=== PATIENT | female | born 1995 | race Caucasian/White ===

== ENCOUNTER 2016-10-01 14:09 | Observation (INO) | payer SELFPAY ==
[~2016-10-01] VITALS: Ht 162.6 cm; Wt 99.2 kg
[~2016-10-01 14:09] MED LIST: MACR100C PO
[2016-10-01 14:19] VITALS: BP 139/93; PULSE 110; RESP 18; TEMP 99.8; O2SAT 97
[2016-10-01] MEDS ORDERED: ACETAMINOPHEN 650 MG/20.3 ML UDC PO ONE (16:00)
[2016-10-01] MEDS ORDERED: methylPREDNISolone SOD SUCC 125 MG/2 ML VIAL IM ONE (16:00)
--- NOTE | 2016-10-01 16:10 | PD ---
HPI Chief Complaint: ENT Complaint Time Seen by Provider: 13:35 Travel History International Travel<30 days: No Contact w/Intl Traveler<30days: No Traveled to known affect area: No History of Present Illness HPI Patient is a 20-year-old female who presents emergency for evaluation of a sore throat. Patient states it started yesterday she's been taking ibuprofen around- the-clock. Patient states it's hard to swallow and talk, she denies any drooling. She denies any nausea, vomiting, chest pain, shortness of breath, abdominal pain. She does report a dull headache due to the pain in her throat. 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) Cardiovascular Problems: Yes (see HPI) Chemotherapy: Yes (IN PAST) Developmental Delay: No Diminished Hearing: No Genitourinary: No Musculoskeletal: No Neurologic: No Respiratory: No Immunizations Current: Yes Radiation Therapy: No Sickle Cell Disease: No Tetanus Vaccination: < 5 Years Influenza Vaccination: No ?: Not LMP: 09/09/16 : 0 Social History Alcohol Use: No Tobacco Use: No Substance Use: No Allergies-Medications (Allergen,Severity, Reaction): Coded Allergies: No Known Allergies (Verified , 10/01/16) Reported Meds & Prescriptions Reported Meds & Active Scripts Active No Active Prescriptions or Reported Medications Review of Systems Except as stated in HPI: all other systems reviewed are Neg General / Constitutional: Positive: Fever, Chills HENT: Positive: Sore Throat, Neck Pain Physical Exam Narrative GENERAL: Well-nourished, well-developed patient. SKIN: Warm and dry. HEAD: Normocephalic. EYES: No scleral icterus. No injection or drainage. ENT: Mucosa pink and moist. 2+ bilateral tonsillar hypertrophy, significant exudates noted on tonsils. No uvular edema. No uvular, palatal, or tonsillar deviation. No stridor noted. Airway patent. Nasal turbinates appear normal without nasal blood, purulent drainage or septal hematoma. NECK: Supple, trachea midline. No JVD or lymphadenopathy. CARDIOVASCULAR: Regular rate and rhythm without murmurs, gallops, or rubs. RESPIRATORY: Breath sounds equal bilaterally. No accessory muscle use. GASTROINTESTINAL: Abdomen soft, non-tender, nondistended. MUSCULOSKELETAL: No cyanosis, or edema. BACK: Nontender without obvious deformity. No CVA tenderness. Data Data Last Documented VS Vital Signs Date Time Temp Pulse Resp B/P Pulse Ox O2 Delivery O2 Flow Rate FiO2 10/01/16 18:51 98.6 86 18 140/77 98 Room Air Orders Methylprednisolone So Succ Inj (Solumedr (10/01/16 16:00) Group A Rapid Strep Screen (10/01/16 15:53) Acetaminophen 650 Mg/20 Ml Liq (Tylenol (10/01/16 16:00) Strep Culture (Group A) (10/01/16 16:10) Sodium Chlor 0.9% 1000 Ml Inj (Ns 1000 M (10/01/16 17:15) Ceftriaxone Inj (Rocephin Inj) (10/01/16 17:15) Complete Blood Count With Diff (10/01/16 17:03) Basic Metabolic Panel (Bmp) (10/01/16 17:03) Monoscreen (10/01/16 17:03) Iv Access Insert/Monitor (10/01/16 17:03) Influenzae A/B Antigen (10/01/16 17:05) Place In Observation (10/01/16 ) Vital Signs (Adult) Q4H (10/01/16 19:49) Activity Oob Ad Jessie (10/01/16 19:49) Accounts Payable Professional / Telemetry .CONTINUOUS (10/01/16 19:49) Diet Clear Liquid (10/02/16 Breakfast) Sodium Chlor 0.9% 1000 Ml Inj (Ns 1000 M (10/01/16 19:49) Sodium Chloride 0.9% Flush (Ns Flush) (10/01/16 20:00) Sodium Chloride 0.9% Flush (Ns Flush) (10/01/16 21:00) Basic Metabolic Panel (Bmp) (10/02/16 06:00) Complete Blood Count With Diff (10/02/16 06:00) Scd Bilateral/Knee High DEBBI.BID (10/01/16 19:49) Naloxone Inj (Narcan Inj) (10/01/16 20:00) Dexamethasone Inj (Decadron Inj) (10/02/16 00:00) Pantoprazole Inj (Protonix Inj) (10/01/16 20:00) Clindamycin Inj (Cleocin Inj) (10/01/16 20:00) Admit Order (Ed Use Only) (10/01/16 19:50) Labs Laboratory Tests Test 10/01/16 17:20 White Blood Count 18.0 TH/MM3 Red Blood Count 4.73 MIL/MM3 Hemoglobin 12.8 GM/DL Hematocrit 37.6 % Mean Corpuscular Volume 79.4 FL Mean Corpuscular Hemoglobin 27.1 PG Mean Corpuscular Hemoglobin 34.1 % Concent Red Cell Distribution Width 13.6 % Platelet Count 272 TH/MM3 Mean Platelet Volume 9.1 FL Neutrophils (%) (Auto) 85.3 % Lymphocytes (%) (Auto) 6.1 % Monocytes (%) (Auto) 7.6 % Eosinophils (%) (Auto) 0.3 % Basophils (%) (Auto) 0.7 % Neutrophils # (Auto) 15.3 TH/MM3 Lymphocytes # (Auto) 1.1 TH/MM3 Monocytes # (Auto) 1.4 TH/MM3 Eosinophils # (Auto) 0.1 TH/MM3 Basophils # (Auto) 0.1 TH/MM3 CBC Comment DIFF FINAL Differential Comment Sodium Level 141 MEQ/L Potassium Level 3.6 MEQ/L Chloride Level 107 MEQ/L Carbon Dioxide Level 22.9 MEQ/L Anion Gap 11 MEQ/L Blood Urea Nitrogen 7 MG/DL Creatinine 0.56 MG/DL Estimat Glomerular Filtration 138 ML/MIN Rate Random Glucose 106 MG/DL Calcium Level 8.7 MG/DL Monoscreen NEG MDM Medical Decision Making Medical Screen Exam Complete: Yes Emergency Medical Condition: Yes Interpretation(s) Vital Signs Date Time Temp Pulse Resp B/P Pulse Ox O2 Delivery O2 Flow Rate FiO2 10/01/16 14:19 99.8 110 18 139/93 97 Differential Diagnosis Strep pharyngitis versus epiglottitis versus viral URI versus influenza versus other Narrative Course Patient is a 20-year-old female presenting to emergency for evaluation of a sore throat and fevers that started yesterday. Physical examination revealed significantly enlarged tonsils with exudates. Patient is mildly febrile, took ibuprofen at home 4 hours ago. IM Solu-Medrol, acetaminophen now. Strep screen is pending. Patient is negative for group A strep. Patient is unable to adequately drink fluids due to tonsillar enlargement. Patient was seen and evaluated by my attending physician. She was given IV Rocephin. At this time it would be prudent to keep patient under observation to assess airway patency. Patient is agreeable. Discussed with Dr. Pedroza who accepted admission. Diagnosis Primary Impression: Tonsillitis with exudate Additional Impression: Airway compromise Admitting Information Admitting Physician Requests: Observation Scripts No Active Prescriptions or Reported Meds Condition: Stable Juhi Stark Oct 01, 2016 16:10
[2016-10-01] MEDS ORDERED: SODIUM CHLOR 0.9% 1000 ML INJ 1,000 ML IV ONE (17:15)
[2016-10-01] MEDS ORDERED: cefTRIAXone INJ 2,000 MG in SODIUM CHLORIDE 0.9% INJ 100 ML IV ONE (17:15)
[2016-10-01 17:26] LABS: AUTOMATED NEUTROPHIL # 15.3 TH/MM3 (1.8-7.7); BASOPHIL # 0.1 TH/MM3 (0-0.2); BASOPHIL % 0.7 % (0.0-2.0); EOSINOPHIL # 0.1 TH/MM3 (0-0.4); EOSINOPHIL % 0.3 % (0.0-4.0); HEMATOCRIT 37.6 % (35.0-46.0); HEMO FLAGS DIFF FINAL; LYMPH % 6.1 % (9.0-44.0); LYMPHOCYTE # 1.1 TH/MM3 (1.0-4.8); MEAN CELL VOLUME 79.4 FL (80.0-100.0); MEAN CORPUSCULAR HEMOGLOBIN 27.1 PG (27.0-34.0); MEAN CORPUSCULAR HGB CONC 34.1 % (32.0-36.0); MONO % 7.6 % (0.0-8.0); NEUT % 85.3 % (16.0-70.0); PLATELET COUNT 272 TH/MM3 (150-450); RED BLOOD COUNT 4.73 MIL/MM3 (4.00-5.30); RED CELL DISTRIBUTION WIDTH 13.6 % (11.6-17.2)
[2016-10-01 17:40] LABS: POTASSIUM 3.6 MEQ/L (3.5-5.1)
[2016-10-01 17:43] LABS: BICARBONATE 22.9 MEQ/L (21.0-32.0)
[2016-10-01 18:51] VITALS: BP 140/77; PULSE 86; RESP 18; TEMP 98.6; O2SAT 98
[2016-10-01] MEDS ORDERED: NALOXONE HCL 0.4 MG/ML AMP IV PRN (20:00)
[2016-10-01] MEDS ORDERED: PANTOPRAZOLE SODIUM 40 MG VIAL IV PUSH SCH (20:00)
[2016-10-01] MEDS ORDERED: SODIUM CHLORIDE 0.9% FLUSH 5 ML FLUSH FLUSH PRN (20:00)
[2016-10-01] MEDS: SODIUM CHLORIDE 0.9% FLUSH 5 ML FLUSH FLUSH SCH (20:15)
[2016-10-01] MEDS ORDERED: MORPHINE SULFATE 4 MG/ML INJ IV PUSH PRN (20:15)
[2016-10-01] MEDS: SODIUM CHLOR 0.9% 1000 ML INJ 1,000 ML IV SCH (20:15)
[2016-10-01] MEDS: CLINDAMYCIN INJ 900 MG in SODIUM CHLORIDE 0.9% INJ 100 ML IV SCH (21:04)
[2016-10-01 23:01] VITALS: PULSE 81
[2016-10-02] VITALS: BP 133/80; PULSE 90; RESP 16; TEMP 96.2; O2SAT 99
[2016-10-02] MEDS: DEXAMETHASONE SOD PHOS 4 MG/ML VIAL IV PUSH SCH ×3 (00:01→13:18)
[2016-10-02] MEDS: CLINDAMYCIN INJ 900 MG in SODIUM CHLORIDE 0.9% INJ 100 ML IV SCH ×3 (01:16→14:28)
[2016-10-02 04:00] VITALS: BP 128/76; PULSE 85; RESP 16; TEMP 97; O2SAT 99
[2016-10-02] MEDS: SODIUM CHLOR 0.9% 1000 ML INJ 1,000 ML IV SCH (06:18)
[2016-10-02 06:43] LABS: AUTOMATED NEUTROPHIL # 9.7 TH/MM3 (1.8-7.7); BASOPHIL % 0.1 % (0.0-2.0); HEMATOCRIT 35.9 % (35.0-46.0); HEMO FLAGS DIFF FINAL; LYMPH % 7.1 % (9.0-44.0); LYMPHOCYTE # 0.7 TH/MM3 (1.0-4.8); MEAN CELL VOLUME 80.2 FL (80.0-100.0); MEAN CORPUSCULAR HEMOGLOBIN 27.5 PG (27.0-34.0); MEAN CORPUSCULAR HGB CONC 34.3 % (32.0-36.0); MONO % 1.4 % (0.0-8.0); NEUT % 91.4 % (16.0-70.0); PLATELET COUNT 261 TH/MM3 (150-450); RED BLOOD COUNT 4.48 MIL/MM3 (4.00-5.30); RED CELL DISTRIBUTION WIDTH 13.6 % (11.6-17.2); WHITE BLOOD COUNT 10.5 TH/MM3 (4.0-11.0)
[2016-10-02 07:12] LABS: POTASSIUM 3.7 MEQ/L (3.5-5.1)
[2016-10-02 07:17] LABS: BICARBONATE 24.8 MEQ/L (21.0-32.0)
[2016-10-02 08:00] VITALS: BP 120/78; PULSE 83; RESP 16; TEMP 98; O2SAT 99
[2016-10-02] MEDS: SODIUM CHLORIDE 0.9% FLUSH 5 ML FLUSH FLUSH SCH (09:00)
[2016-10-02] MEDS ORDERED: NYSTAT/DIPHENHY/LIDO MOUTHWASH (Adult) 120ML SWISH-SWAL SCH (11:00)
[2016-10-02 12:00] VITALS: BP 118/77; PULSE 80; RESP 16; TEMP 98; O2SAT 99
[2016-10-02] MEDS ORDERED: MAGICADU2 SWISH-SWAL (13:44)
[2016-10-02] MEDS ORDERED: AMOX250C CHEW (13:44)
--- NOTE | 2016-10-02 13:50 | HHI.HP ---
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 She had been taking ibuprofen without relief. She denied fevers, chills, drooling, vomiting, or shortness of breath. She was found to have tonsillitis emergency department. A rapid strep screen was negative. The emergency department nurse practitioner requested observation overnight. Today the patient is tolerating clear liquids. She received clindamycin and Decadron IV overnight and feels much better. She is swallowing well. Review of Systems Constitutional: DENIES: Fever, Chills Ears, nose, mouth, throat: COMPLAINS OF: Throat pain, Odynophagia Respiratory: DENIES: Cough, Shortness of breath Cardiovascular: DENIES: Chest pain, Palpitations Gastrointestinal: DENIES: Nausea, Vomiting Genitourinary: DENIES: Urinary frequency, Urgency Musculoskeletal: DENIES: Back pain, Neck pain Hematologic/lymphatic: DENIES: Lymphadenopathy Immunologic/allergic: DENIES: Eczema, Urticaria Neurologic: COMPLAINS OF: Headache, DENIES: Abnormal gait Psychiatric: DENIES: Anxiety, Confusion Past Family Social History Past Medical History As per history of present illness Past Surgical History Surgery for broken arm as a child. Allergies: Coded Allergies: No Known Allergies (Verified , 10/01/16) Family History Reviewed and noncontributory Social History No alcohol tobacco or drug use Physical Exam Vital Signs Vital Signs Date Time Temp Pulse Resp B/P Pulse Ox O2 Delivery O2 Flow Rate FiO2 10/02/16 12:00 98.0 80 16 118/77 99 10/02/16 08:00 98.0 83 16 120/78 99 10/02/16 04:00 97.0 85 16 128/76 99 10/02/16 00:00 96.2 90 16 133/80 99 10/01/16 23:01 81 10/01/16 18:51 98.6 86 18 140/77 98 Room Air 10/01/16 14:19 99.8 110 18 139/93 97 Physical Exam GENERAL: Well-nourished, well-developed patient. SKIN: Warm and dry. HEAD: Normocephalic. Oropharynx: Moist. She has kissing 3+ tonsils which are erythematous with scant white exudate however airways pain. No stridor. No drooling. EYES: No scleral icterus. No injection or drainage. NECK: Supple, trachea midline. No JVD or lymphadenopathy. CARDIOVASCULAR: Regular rate and rhythm without murmurs, gallops, or rubs. RESPIRATORY: Breath sounds equal bilaterally. No accessory muscle use. GASTROINTESTINAL: Abdomen soft, non-tender, nondistended. EXTREMITIES: No cyanosis, or edema. NEUROLOGICAL: Awake, alert, and oriented x 3. Non-focal. Laboratory Laboratory Tests Test 10/01/16 10/02/16 17:20 06:00 White Blood Count 18.0 10.5 Red Blood Count 4.73 4.48 Hemoglobin 12.8 12.3 Hematocrit 37.6 35.9 Mean Corpuscular Volume 79.4 80.2 Mean Corpuscular Hemoglobin 27.1 27.5 Mean Corpuscular Hemoglobin 34.1 34.3 Concent Red Cell Distribution Width 13.6 13.6 Platelet Count 272 261 Mean Platelet Volume 9.1 9.1 Neutrophils (%) (Auto) 85.3 91.4 Lymphocytes (%) (Auto) 6.1 7.1 Monocytes (%) (Auto) 7.6 1.4 Eosinophils (%) (Auto) 0.3 0.0 Basophils (%) (Auto) 0.7 0.1 Neutrophils # (Auto) 15.3 9.7 Lymphocytes # (Auto) 1.1 0.7 Monocytes # (Auto) 1.4 0.1 Eosinophils # (Auto) 0.1 0.0 Basophils # (Auto) 0.1 0.0 CBC Comment DIFF FINAL DIFF FINAL Differential Comment Sodium Level 141 142 Potassium Level 3.6 3.7 Chloride Level 107 108 Carbon Dioxide Level 22.9 24.8 Anion Gap 11 9 Blood Urea Nitrogen 7 6 Creatinine 0.56 0.40 Estimat Glomerular Filtration 138 203 Rate Random Glucose 106 114 Calcium Level 8.7 8.6 Monoscreen NEG Date/Time Procedure Status Source Growth 10/01/16 17:20 Influenza Types A,B Antigen (POONAM) - Final Complete Nasal Washing NEGATIVE FOR FLU A AND B ANTIGEN.... 10/01/16 16:10 Group A Streptococcus Screen (POONAM) - Final Complete Throat 10/01/16 16:10 Group A Streptococcus Screen Received Throat Pending Result Diagram: 10/02/16 0600 10/02/16 0600 Assessment and Plan Problem List: (1) Tonsillitis with exudate ICD Code: J03.90 Status: Acute Assessment and Plan -Acute tonsillitis. Likely bilateral. [place] screen and strep were negative. She has kissing tonsils with mild accident but is tolerating clear liquid diet and would like to eat regular food. We'll advance her diet. She can be discharged home. I will prescribe her Magic mouthwash and amoxicillin. She is advised to return the emergency department for inability to swallow, worsening symptoms were nausea and vomiting. Danita Ramirez MD Oct 02, 2016 13:50
== END 2016-10-02 16:04 | disposition home or self-care (01) ==
LOC: PHEFT 14:09 → PHEDA 19:53 → PH3B 22:48
PROVIDERS: ADMIT Family Medicine; ATTEND Family Medicine
DX: J35.1 Hypertrophy of tonsils (principal); R13.10 Dysphagia, unspecified; R51 Headache; Z85.72 Personal history of non-Hodgkin lymphomas
CPT/HCPCS: 80048; 85025; 86308; 87081; 87804; 87880; 96365; 96372; 99285; C9113; G0378; J0696; J1100; J2930; J7030

== ENCOUNTER 2016-12-10 04:59 | Emergency (ER) | payer SELFPAY ==
[~2016-12-10] VITALS: Ht 160 cm; Wt 98.3 kg
[~2016-12-10 04:59] MED LIST changes: +AMOX250C CHEW; -MACR100C PO; +MAGICADU2 SWISH-SWAL
[2016-12-10 05:04] VITALS: BP 115/71; PULSE 63; RESP 18; TEMP 97.7; O2SAT 98
[2016-12-10 05:29] VITALS: BP 115/71; PULSE 63; RESP 18; TEMP 97.7; O2SAT 98
[2016-12-10 05:41] VITALS: BP 129/84; PULSE 66; RESP 18; O2SAT 99
[2016-12-10] MEDS ORDERED: SODIUM CHLOR 0.9% 1000 ML INJ 1,000 ML IV SCH (06:14)
--- NOTE | 2016-12-10 06:14 | PD ---
HPI Chief Complaint: Abdominal Pain Time Seen by Provider: 06:10 Travel History International Travel<30 days: No Contact w/Intl Traveler<30days: No Traveled to known affect area: No History of Present Illness HPI 21-year-old female presents to the emergency department by private transportation for complaint of epigastric and periumbilical pain that awakened her from sleep at 3 AM. Patient rates her pain 7/10 in intensity. Patient's had nausea without vomiting. Patient states pain radiates into her back. No prior history of peptic ulcer disease gastritis pancreatitis or gallbladder disease. Patient has taken no medications prior to arrival to the emergency department. Patient admits to drinking alcohol over the weekend. Patient denies tobacco use or substance use. No chest pain or shortness of breath. No fever or chills. No recent respiratory illness. No dysuria frequency urgency flank pain hematuria vaginal discharge or vaginal bleeding. Last menses was 06/11 and normal for her. Patient is sent reactive with condom use. Patient reports walking around seems to alleviate the pain and lying down seems to worsen her symptoms. No personal or family history of inflammatory bowel disease. PFSH Past Medical History Narrative Medical B cell lymphoma with chemotherapy age 13; immunizations current; no tobacco use ; nursing notes reviewed Cancer: Yes (HX LARGE B CELL LYMPHOMA AT AGE 13.) Chemotherapy: Yes (2010 large diffuse B-cell Lymphoma) Developmental Delay: No Diminished Hearing: No Endocrine: No Genitourinary: No Immune Disorder: No Implanted Vascular Access Dvce: Yes Musculoskeletal: No Neurologic: No Psychiatric: No Reproductive: No Respiratory: Yes Immunizations Current: Yes Radiation Therapy: No Sickle Cell Disease: No Tetanus Vaccination: < 5 Years Influenza Vaccination: No ?: Not LMP: 12/03/2016 : 0 Social History Alcohol Use: No Tobacco Use: No Substance Use: No Allergies-Medications (Allergen,Severity, Reaction): Coded Allergies: No Known Allergies (Verified , 12/10/16) Reported Meds & Prescriptions Reported Meds & Active Scripts Active Review of Systems Except as stated in HPI: all other systems reviewed are Neg General / Constitutional: No: Fever, Chills HENT: No: Congestion Cardiovascular: No: Chest Pain or Discomfort Gastrointestinal: Positive: Nausea, Abdominal Pain, No: Vomiting, Diarrhea, Loss of Appetite Genitourinary: No: Urgency, Frequency, Dysuria, Hematuria, Pelvic Pain, Flank Pain, Discharge, Vaginal Bleeding Musculoskeletal: No: Myalgias, Arthralgias Skin: No Rash Neurologic: No: Weakness Psychiatric: No: Anxiety Endocrine: No: Heat Intolerance, Cold Intolerance Hematologic/Lymphatic: No: Easy Bruising Physical Exam Narrative GENERAL: Well-developed well-nourished female in no acute distress no respiratory distress SKIN: Warm and dry. HEAD: Normocephalic. EYES: No scleral icterus. No injection or drainage. NECK: Supple, trachea midline. No JVD or lymphadenopathy. CARDIOVASCULAR: Regular rate and rhythm without murmurs, gallops, or rubs. RESPIRATORY: Breath sounds equal bilaterally. No accessory muscle use. GASTROINTESTINAL: Abdomen soft, epigastric and periumbilical tenderness to palpation without guarding or rebound, no clinical Rod sign and no tenderness at McBurney's point, nondistended. MUSCULOSKELETAL: No cyanosis, or edema. BACK: Nontender without obvious deformity. No CVA tenderness. Data Data Last Documented VS Vital Signs Date Time Temp Pulse Resp B/P Pulse Ox O2 Delivery O2 Flow Rate FiO2 12/10/16 07:05 60 18 121/74 98 Room Air 12/10/16 05:29 97.7 Orders Complete Blood Count With Diff (12/10/16 06:14) Comprehensive Metabolic Panel (12/10/16 06:14) Lipase (12/10/16 06:14) Urinalysis - C+S If Indicated (12/10/16 06:14) Iv Access Insert/Monitor (12/10/16 06:14) Ecg Monitoring (12/10/16 06:14) Oximetry (12/10/16 06:14) Ondansetron Inj (Zofran Inj) (12/10/16 06:15) Pantoprazole Inj (Protonix Inj) (12/10/16 06:15) Sodium Chlor 0.9% 1000 Ml Inj (Ns 1000 M (12/10/16 06:14) Sodium Chloride 0.9% Flush (Ns Flush) (12/10/16 06:15) Ed Urine Pregnancytest Poc (12/10/16 06:14) Morphine Inj (Morphine Inj) (12/10/16 06:15) Labs Laboratory Tests Test 12/10/16 06:25 White Blood Count 8.4 TH/MM3 Red Blood Count 5.10 MIL/MM3 Hemoglobin 13.7 GM/DL Hematocrit 41.3 % Mean Corpuscular Volume 80.8 FL Mean Corpuscular Hemoglobin 26.9 PG Mean Corpuscular Hemoglobin 33.3 % Concent Red Cell Distribution Width 13.8 % Platelet Count 299 TH/MM3 Mean Platelet Volume 9.4 FL Neutrophils (%) (Auto) 62.8 % Lymphocytes (%) (Auto) 21.4 % Monocytes (%) (Auto) 10.4 % Eosinophils (%) (Auto) 4.8 % Basophils (%) (Auto) 0.6 % Neutrophils # (Auto) 5.2 TH/MM3 Lymphocytes # (Auto) 1.8 TH/MM3 Monocytes # (Auto) 0.9 TH/MM3 Eosinophils # (Auto) 0.4 TH/MM3 Basophils # (Auto) 0.1 TH/MM3 CBC Comment DIFF FINAL Differential Comment Urine Color YELLOW Urine Turbidity CLEAR Urine pH 6.5 Urine Specific [place] 1.013 Urine Protein NEG mg/dL Urine Glucose (UA) NEG mg/dL Urine Ketones NEG mg/dL Urine Occult Blood NEG Urine Nitrite NEG Urine Bilirubin NEG Urine Leukocyte Esterase SMALL Urine WBC 0-2 /hpf Urine Squamous Epithelial 0-5 /hpf Cells Microscopic Urinalysis Comment CULT NOT INDICATED Sodium Level 143 MEQ/L Potassium Level 3.6 MEQ/L Chloride Level 105 MEQ/L Carbon Dioxide Level 28.4 MEQ/L Anion Gap 10 MEQ/L Blood Urea Nitrogen 7 MG/DL Creatinine 0.59 MG/DL Estimat Glomerular Filtration 129 ML/MIN Rate Random Glucose 92 MG/DL Calcium Level 8.7 MG/DL Total Bilirubin 0.5 MG/DL Aspartate Amino Transf 10 U/L (AST/SGOT) Alanine Aminotransferase 16 U/L (ALT/SGPT) Alkaline Phosphatase 82 U/L Total Protein 7.3 GM/DL Albumin 3.8 GM/DL Lipase 106 U/L MDM Medical Decision Making Medical Screen Exam Complete: Yes Emergency Medical Condition: Yes Medical Record Reviewed: Yes Interpretation(s) [id number] hCG: Negative CBC & BMP Diagram 12/10/16 06:25 Vital Signs Date Time Temp Pulse Resp B/P Pulse Ox O2 Delivery O2 Flow Rate FiO2 12/10/16 07:05 60 18 121/74 98 Room Air 12/10/16 07:04 18 12/10/16 06:45 70 18 120/80 99 Room Air 12/10/16 06:44 18 99 Room Air 12/10/16 05:41 66 18 129/84 99 Room Air 12/10/16 05:36 18 12/10/16 05:29 97.7 63 18 115/71 98 12/10/16 05:04 97.7 63 18 115/71 98 Differential Diagnosis Abdominal pain, gastritis, peptic ulcer disease, pancreatitis, biliary colic, cholecystitis, viral syndrome, gastroenteritis Narrative Course IV access obtained specimens collected and sent for resulting [id number] test performed IV fluids administered along with Zofran 4 mg IV and morphine 2 mg IV At 7:25 AM patient is clinically improved and stable for outpatient management; lab values resulted and found to be within normal range; pain is 0/10 in intensity; patient reexamined abdomen is soft nontender no guarding or rebound Diagnosis Primary Impression: Gastritis Referrals: Primary Care Physician call for appointment Patient Instructions: General Instructions Additional Instructions: Increase fluid hydration Follow clear liquid diet for next 12-24 hours advance as tolerated to bland/ Krystina diet then regular diet Take Zofran as prescribed as needed for nausea and/or vomiting Recommend Protonix daily for the next 7 days or [id number] Zantac 150 twice daily for 7 days Follow-up with primary care provider Avoid nonsteroidal anti-inflammatory medication use such as ibuprofen/Motrin/ Advil May use acetaminophen/Tylenol as needed for fever 100.4F or greater or for minor pain No work or school times one day Med/Other Pt SpecificInfo: Prescription(s) given Scripts Pantoprazole (Protonix)40 Mg Tab40 Mg PO DAILY #14 TAB Ref 0 Prov:Ligia Horn MD 12/10/16 Ondansetron Odt (Zofran Odt)4 Mg Tab4 Mg SL Q6HR PRN (Nausea/Vomiting) #12 TAB Ref 0 Prov:Ligia Horn MD 12/10/16 Disposition: 01 DISCHARGE HOME Condition: Stable Ligia Horn MD Dec 10, 2016 06:14
[2016-12-10] MEDS ORDERED: ONDANSETRON HCL 4 MG/2 ML VIAL IVP ONE (06:15)
[2016-12-10] MEDS ORDERED: MORPHINE SULFATE 4 MG/ML INJ IV PUSH ONE (06:15)
[2016-12-10] MEDS ORDERED: SODIUM CHLORIDE 0.9% FLUSH 10 ML FLUSH IV FLUSH PRN (06:15)
[2016-12-10] MEDS ORDERED: PANTOPRAZOLE SODIUM 40 MG VIAL IVP ONE (06:15)
[2016-12-10 06:44] VITALS: RESP 18; O2SAT 99
[2016-12-10 06:45] VITALS: BP 120/80; PULSE 70; RESP 18; O2SAT 99
[2016-12-10 06:53] LABS: AUTOMATED NEUTROPHIL # 5.2 TH/MM3 (1.8-7.7); BASOPHIL # 0.1 TH/MM3 (0-0.2); BASOPHIL % 0.6 % (0.0-2.0); EOSINOPHIL # 0.4 TH/MM3 (0-0.4); EOSINOPHIL % 4.8 % (0.0-4.0); HEMATOCRIT 41.3 % (35.0-46.0); HEMO FLAGS DIFF FINAL; LYMPH % 21.4 % (9.0-44.0); LYMPHOCYTE # 1.8 TH/MM3 (1.0-4.8); MEAN CELL VOLUME 80.8 FL (80.0-100.0); MEAN CORPUSCULAR HEMOGLOBIN 26.9 PG (27.0-34.0); MEAN CORPUSCULAR HGB CONC 33.3 % (32.0-36.0); MONO % 10.4 % (0.0-8.0); NEUT % 62.8 % (16.0-70.0); PLATELET COUNT 299 TH/MM3 (150-450); RED CELL DISTRIBUTION WIDTH 13.8 % (11.6-17.2); WHITE BLOOD COUNT 8.4 TH/MM3 (4.0-11.0)
[2016-12-10 07:00] LABS: BLOOD, URINE NEG (NEG); GLUCOSE,URINE NEG (NEG); KETONE, URINE NEG (NEG); NITRITE,URINE NEG (NEG); PH, URINE 6.5 (5.0-8.5)
[2016-12-10 07:03] LABS: CHLORIDE 105 MEQ/L (98-107); POTASSIUM 3.6 MEQ/L (3.5-5.1); SODIUM (NA) 143 MEQ/L (136-145)
[2016-12-10 07:05] VITALS: BP 121/74; PULSE 60; RESP 18; O2SAT 98
[2016-12-10 07:05] LABS: URINE COLOR YELLOW (YELLW/STRAW)
[2016-12-10 07:07] LABS: ANION GAP 10 MEQ/L (5-15); BICARBONATE 28.4 MEQ/L (21.0-32.0); BLOOD UREA NITROGEN 7 MG/DL (7-18)
[2016-12-10 07:09] LABS: ALT (GPT) 16 U/L (10-53)
[2016-12-10 07:10] LABS: AST (GOT) 10 U/L (15-37); GLOMERULAR FILTRATION RATE 129 ML/MIN (>89)
[2016-12-10 07:11] LABS: COMMENT (UR) CULT NOT INDICATED; CULTURE IF INDICATED CULT NOT INDICATED; SQUAMOUS EPITHELIAL CELL URINE 0-5 /hpf (0-5); TOTAL BILIRUBIN ADULT 0.5 MG/DL (0.2-1.0); WBC, URINE 0-2 /hpf (0-5)
[2016-12-10 07:12] LABS: ALKALINE PHOSPHATASE 82 U/L (45-117)
[2016-12-10] MEDS ORDERED: PROT40TA PO (07:27)
[2016-12-10] MEDS ORDERED: ZOFR4TAB3 SL (07:27)
== END 2016-12-10 07:38 | disposition home or self-care (01) ==
LOC: PHED 04:59
DX: K29.70 Gastritis, unspecified, without bleeding (principal); Z85.72 Personal history of non-Hodgkin lymphomas
CPT/HCPCS: 80053; 81001; 83690; 84703; 85025; 96361; 96374; 96375; 99284; C9113; J2270; J2405; J7030

== ENCOUNTER 2017-02-16 01:12 | Emergency (ER) | payer SELFPAY ==
[~2017-02-16] VITALS: Ht 160 cm; Wt 101.2 kg
[~2017-02-16 01:12] MED LIST changes: -AMOX250C CHEW; -MAGICADU2 SWISH-SWAL; +PROT40TA PO; +ZOFR4TAB3 SL
[2017-02-16 01:17] VITALS: BP 135/83; PULSE 71; RESP 16; TEMP 97.9; O2SAT 98
[2017-02-16] MEDS ORDERED: DOXY100C PO (02:29)
[2017-02-16] MEDS ORDERED: BACT800T5 PO (02:29)
--- NOTE | 2017-02-16 02:31 | PD ---
HPI Chief Complaint: Skin Problem Time Seen by Provider: 02:25 Travel History International Travel<30 days: No Contact w/Intl Traveler<30days: No Traveled to known affect area: No History of Present Illness HPI The patient is a 21-year-old female that complains of a painful lump for 2 days in her right axilla. She has had this problem before and went away. She does shave her arms. She does use antiperspirants. She states there is no possibility of , she takes control pills correctly. 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13.) Chemotherapy: Yes Developmental Delay: No Diminished Hearing: No Endocrine: No Genitourinary: No Immune Disorder: No Musculoskeletal: No Neurologic: No Psychiatric: No Reproductive: No Respiratory: Yes Immunizations Current: Yes Radiation Therapy: No Sickle Cell Disease: No ?: Unknown LMP: 02/04/17 : 0 Social History Alcohol Use: No Tobacco Use: No Substance Use: No Allergies-Medications (Allergen,Severity, Reaction): Coded Allergies: No Known Allergies (Verified , 02/16/17) Reported Meds & Prescriptions Reported Meds & Active Scripts Active No Active Prescriptions or Reported Medications Review of Systems Except as stated in HPI: all other systems reviewed are Neg Physical Exam Narrative GENERAL: Well-nourished, well-developed patient in minimal apparent distress with her right axillary pain. Her vital signs are normal. SKIN: Focused skin assessment warm/dry. There is an erythematous lesion approximately 1 cm x 3 mm on the right axilla. There are several smaller lesions. There is no fluctuance present. The axilla has been shaved. The larger lesion as well as several smaller lesions are consistent with hidradenitis suppurativa. HEAD: Normocephalic. EYES: No scleral icterus. No injection or drainage. NECK: Supple, trachea midline. No JVD or lymphadenopathy. CARDIOVASCULAR: Regular rate and rhythm without murmurs, gallops, or rubs. RESPIRATORY: Breath sounds equal bilaterally. No accessory muscle use. GASTROINTESTINAL: Abdomen soft, non-tender, nondistended. MUSCULOSKELETAL: No cyanosis, or edema. BACK: Nontender without obvious deformity. No CVA tenderness. Data Data Last Documented VS Vital Signs Date Time Temp Pulse Resp B/P Pulse Ox O2 Delivery O2 Flow Rate FiO2 02/16/17 01:38 20 02/16/17 01:17 97.9 71 135/83 98 MDM Medical Decision Making Medical Screen Exam Complete: Yes Emergency Medical Condition: Yes Medical Record Reviewed: Yes Differential Diagnosis Hidradenitis suppurativa, sebaceous cyst, ingrown hair, contact dermatitis Narrative Course The patient has hidradenitis suppurativa. She is given doxycycline and Septra DS and told to discontinue antiperspirants on that side. She should avoid intense heat and sweating and try to stay in air conditioning. She should follow-up with her primary care physician or a base manager. Diagnosis Primary Impression: Hidradenitis suppurativa of right axilla Additional Instructions: Discontinue the antiperspirants on the right side, striking try to stay in an environment's that do not cause intense sweating and take the antibiotics, they are both twice daily for 10 days. Follow-up with a base manager or your primary care physician. Med/Other Pt SpecificInfo: Prescription(s) given Scripts Doxycycline Hyclate 100 Mg [id number] Mg PO BID #20 CAP Ref 0 Prov:Jermain Weaver MD 02/16/17 Sulfamethoxazole-Trimethoprim (Bactrim DS)800-160 Mg Tab1 Tab PO BID #20 TAB Ref 0 Prov:Jermain Weaver MD 02/16/17 Disposition: 01 DISCHARGE HOME Condition: Stable Jermain Weaver MD Feb 16, 2017 02:30
[2017-02-16] MEDS ORDERED: DOXYCYCLINE HYCLATE 100 MG CAP PO ONE (02:45)
[2017-02-16] MEDS ORDERED: SULFAMETHOXAZOLE-TRIMETHOPRIM DS 800-160 MG TAB PO ONE (02:45)
[2017-02-16 02:48] VITALS: BP 128/76
== END 2017-02-16 02:51 | disposition home or self-care (01) ==
LOC: PHED 01:12
DX: L73.2 Hidradenitis suppurativa (principal)
CPT/HCPCS: 99284

== ENCOUNTER 2017-02-26 10:33 | Emergency (ER) | payer SELFPAY ==
[~2017-02-26] VITALS: Ht 160 cm; Wt 101.0 kg
[~2017-02-26 10:33] MED LIST changes: +BACT800T5 PO; +DOXY100C PO; -PROT40TA PO; -ZOFR4TAB3 SL
[2017-02-26 10:35] VITALS: BP 138/86; PULSE 67; RESP 16; TEMP 98.2; O2SAT 97
--- NOTE | 2017-02-26 10:54 | PD ---
HPI Chief Complaint: Abdominal Pain Time Seen by Provider: 10:44 Travel History International Travel<30 days: No Contact w/Intl Traveler<30days: No Traveled to known affect area: No History of Present Illness HPI This 21-year-old female is complaining of lower abdominal pain. Says the pain started 2 days ago in the evening. Seemed better the next day but again he came back last night and was present this morning. She rates it as a 5 right now. It is a suprapubic pain which also goes to both sides. Her last period was a ended a week ago. She is on control pills. There has been no vomiting or diarrhea. There is been no fever. 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13.) Chemotherapy: Yes (2010-LYMPHOMA) Developmental Delay: No Diminished Hearing: No Endocrine: No Genitourinary: No Heparin Induced Thrombocytopen: No Immune Disorder: No Implanted Vascular Access Dvce: No (PORT REMOVED) Musculoskeletal: No Neurologic: No Psychiatric: No Reproductive: No Respiratory: Yes Immunizations Current: Yes Radiation Therapy: No Sickle Cell Disease: No Tetanus Vaccination: < 5 Years Influenza Vaccination: No ?: Not LMP: ENDED 1 WEEK AGO : 0 Social History Alcohol Use: Yes (occas mix drinks) Tobacco Use: No Substance Use: No Allergies-Medications (Allergen,Severity, Reaction): Coded Allergies: No Known Allergies (Verified , 02/26/17) Reported Meds & Prescriptions Reported Meds & Active Scripts Active No Active Prescriptions or Reported Medications Review of Systems General / Constitutional: No: Fever, Chills Eyes: No: Diploplia, Blurred Vision HENT: No: Headaches Cardiovascular: No: Chest Pain or Discomfort, Palpitations Respiratory: No: Cough, Shortness of Breath Gastrointestinal: No: Nausea, Vomiting Genitourinary: Positive: Pelvic Pain, No: Urgency, Frequency Musculoskeletal: No: Myalgias Skin: No Rash, No Itching Neurologic: No: Weakness, Dizziness Hematologic/Lymphatic: No: Easy Bruising Physical Exam Narrative GENERAL: Well-developed female warm/dry. HEAD: Atraumatic. Normocephalic. EYES: Pupils equal and round. No scleral icterus. No injection or drainage. ENT: No nasal bleeding or discharge. Mucous membranes pink and moist. NECK: Trachea midline. No JVD. CARDIOVASCULAR: Regular rate and rhythm. No murmur appreciated. RESPIRATORY: No accessory muscle use. Clear to auscultation. Breath sounds equal bilaterally. GASTROINTESTINAL: Abdomen soft, lower abdominal tenderness without guarding or rigidity,nondistended. Hepatic and splenic margins not palpable. Pelvic: There is yellowish discharge. There is pain with movement of the cervix. There are no adnexal masses. MUSCULOSKELETAL: No obvious deformities. No clubbing. No cyanosis. No edema. NEUROLOGICAL: Awake and alert. No obvious cranial nerve deficits. Motor grossly within normal limits. Normal speech. PSYCHIATRIC: Appropriate mood and affect; insight and judgment normal. Data Data Last Documented VS Vital Signs Date Time Temp Pulse Resp B/P Pulse Ox O2 Delivery O2 Flow Rate FiO2 02/26/17 10:49 16 02/26/17 10:35 98.2 67 138/86 97 Orders Urinalysis - C+S If Indicated (02/26/17 10:51) Ed Urine Pregnancytest Poc (02/26/17 10:51) Urine Culture (02/26/17 10:55) Gc And Chlamydia Pcr (02/26/17 11:12) Wet Prep Profile (02/26/17 11:12) Ceftriaxone Inj (Rocephin Inj) (02/26/17 11:15) Lidocaine 1% Inj (50 Ml) (Xylocaine 1% I (02/26/17 11:15) Labs Laboratory Tests Test 02/26/17 10:55 Urine Collection Type CLEAN CATCH Urine Color STRAW Urine Turbidity CLEAR Urine pH 7.5 Urine Specific [place] 1.007 Urine Protein NEG mg/dL Urine Glucose (UA) NEG mg/dL Urine Ketones NEG mg/dL Urine Occult Blood NEG Urine Nitrite NEG Urine Bilirubin NEG Urine Leukocyte Esterase MOD Urine RBC 0-3 /hpf Urine WBC 9-14 /hpf Urine Squamous Epithelial 0-5 /hpf Cells Urine Bacteria FEW /hpf Microscopic Urinalysis Comment CULTURE INDICATED MDM Medical Decision Making Medical Screen Exam Complete: Yes Emergency Medical Condition: Yes Medical Record Reviewed: Yes Differential Diagnosis Differential includes UTI, cervicitis, ovarian cysts Narrative Course Urine shows 9-14 white cells. Her examination is most consistent with cervicitis she will be given Rocephin followed by doxycycline Diagnosis Primary Impression: Cervicitis Scripts Doxycycline Hyclate 100 Mg [id number] Mg PO BID #20 CAP Ref 0 Prov:Dada Myles MD 02/26/17 Dada Myles MD Feb 26, 2017 10:54
[2017-02-26 11:00] LABS: BLOOD, URINE NEG (NEG); GLUCOSE,URINE NEG (NEG); KETONE, URINE NEG (NEG); NITRITE,URINE NEG (NEG); PH, URINE 7.5 (5.0-8.5)
[2017-02-26 11:08] LABS: METHOD OF COLLECTION CLEAN CATCH; URINE COLOR STRAW (YELLW/STRAW)
[2017-02-26 11:09] LABS: BACTERIA, URINE FEW /hpf; COMMENT (UR) CULTURE INDICATED; CULTURE IF INDICATED CULTURE INDICATED; RBC, URINE 0-3 /hpf (0-3); SQUAMOUS EPITHELIAL CELL URINE 0-5 /hpf (0-5)
[2017-02-26] MEDS ORDERED: cefTRIAXone 250 MG VIAL IM ONE (11:15)
[2017-02-26] MEDS ORDERED: LIDOCAINE HCL 1% 50 ML VIAL IM ONE (11:15)
[2017-02-26] MEDS ORDERED: DOXY100C PO (11:17)
[2017-02-26] MEDS ORDERED: LIDOCAINE HCL 1% PF 30 ML VIAL ONE (11:19)
[2017-02-26] MEDS ORDERED: LIDOCAINE HCL 1% 30 ML VIAL INFIL ONE (11:30)
[2017-02-26 17:19] LABS: CHLAMYDIA PCR NOT DETECTED (NOT DETECT); NEISSERIA PCR NOT DETECTED (NOT DETECT)
[2017-02-27] MEDS ORDERED: MACR100C2 PO (10:13)
[2017-02-27] MEDS ORDERED: IBUP-232 PO (10:13)
[2017-02-27] MEDS ORDERED: TYLETAB34 PO (10:13)
== END 2017-02-26 11:59 | disposition home or self-care (01) ==
LOC: PHED 10:33
DX: Z85.72 Personal history of non-Hodgkin lymphomas (principal); N72 Inflammatory disease of cervix uteri; B96.29 Other Escherichia coli [E. coli] as the cause of diseases classified elsewhere
CPT/HCPCS: 81001; 84703; 87086; 87210; 87491; 87591; 96372; 99284; J0696

== ENCOUNTER 2017-02-27 07:58 | Emergency (ER) | payer SELFPAY ==
[~2017-02-27] VITALS: Ht 160 cm; Wt 100.6 kg
[~2017-02-27 07:58] MED LIST changes: -BACT800T5 PO
[2017-02-27 08:02] VITALS: BP 134/75; PULSE 65; RESP 16; TEMP 97.7; O2SAT 98
--- NOTE | 2017-02-27 08:17 | PD ---
HPI Chief Complaint: Musculoskeletal Complaint Time Seen by Provider: 08:06 Travel History International Travel<30 days: No Contact w/Intl Traveler<30days: No Traveled to known affect area: No History of Present Illness HPI Patient is a 21 year old female who presents to ER with c/o of lower back pain. Patient reports that she was seen in the emergency room yesterday for suprapubic pain as well as for low back pain, reports that she was treated for cervicitis is currently on doxycycline, reports that she is completely resolution of her abdominal pain at this time, vaginal discharge or bleeding. Denies any dysuria, urinary urgency or frequency. Patient reports concern as no one addressed her lower back pain. Patient reports that for the past few days, she has had increased lower back pain, denies any trauma to her low back. She reports that she try taking acetaminophen with no relief of symptoms. Patient reports no trauma or fall. Patient denies any incontinence of urine or bowel. Patient denies any saddle anesthesia. Patient denies any difficulty with gait or ambulation. Patient presents to ER for low back pain. Denies use of drugs. 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13.) Chemotherapy: Yes (2010-LYMPHOMA) Developmental Delay: No Diminished Hearing: No Endocrine: No Genitourinary: No Heparin Induced Thrombocytopen: No Immune Disorder: No Implanted Vascular Access Dvce: No (PORT REMOVED) Musculoskeletal: No Neurologic: No Psychiatric: No Reproductive: No Respiratory: Yes Immunizations Current: Yes Radiation Therapy: No Sickle Cell Disease: No Tetanus Vaccination: < 5 Years Influenza Vaccination: No ?: Not LMP: LAST WEEK : 0 Social History Alcohol Use: Yes (occas mix drinks) Tobacco Use: No Substance Use: No Allergies-Medications (Allergen,Severity, Reaction): Coded Allergies: No Known Allergies (Verified , 02/27/17) Reported Meds & Prescriptions Reported Meds & Active Scripts Active Doxycycline Hyclate 100 Mg Cap 100 Mg PO BID Review of Systems General / Constitutional: No: Fever Eyes: No: Visual changes HENT: No: Headaches Cardiovascular: No: Chest Pain or Discomfort Respiratory: No: Shortness of Breath Gastrointestinal: No: Nausea, Abdominal Pain Genitourinary: No: Urgency, Frequency, Dysuria, Hematuria Musculoskeletal: Positive: Pain (low back pain) Skin: No Rash Neurologic: No: Weakness Psychiatric: No: Depression Endocrine: No: Polydipsia Hematologic/Lymphatic: No: Easy Bruising Physical Exam Narrative GENERAL: No acute distress, nontoxic SKIN: Focused skin assessment warm/dry. HEAD: Atraumatic. Normocephalic. EYES:No injection or drainage. ENT: No nasal bleeding or discharge. Mucous membranes pink and moist. NECK: Trachea midline. No JVD. CARDIOVASCULAR: Regular rate and rhythm. No murmur appreciated. RESPIRATORY: No accessory muscle use. Clear to auscultation. Breath sounds equal bilaterally. GASTROINTESTINAL: Abdomen soft, non-tender, nondistended. Hepatic and splenic margins not palpable. Patient with no saddle anesthesia MUSCULOSKELETAL: No obvious deformities. No clubbing. No cyanosis. No edema. Patient with lumbar paraspinal muscle tenderness, patient with no midline tenderness NEUROLOGICAL: Awake and alert. No obvious cranial nerve deficits. Motor grossly within normal limits. Normal speech. Patient ambulating emergency with normal gait PSYCHIATRIC: Appropriate mood and affect; insight and judgment normal. Data Data Last Documented VS Vital Signs Date Time Temp Pulse Resp B/P Pulse Ox O2 Delivery O2 Flow Rate FiO2 02/27/17 09:59 58 14 138/65 98 Room Air 02/27/17 08:02 97.7 Orders Spine, Lumbar - Ltd (Ap & Lat) (02/27/17 ) Ed Urine Pregnancytest Poc (02/27/17 08:16) Urinalysis - C+S If Indicated (02/27/17 08:16) Dexamethasone Inj (Decadron Inj) (02/27/17 08:30) Ketorolac Inj (Toradol Inj) (02/27/17 08:30) Diazepam (Valium) (02/27/17 08:30) Nitrofurantoin Monohyd Macrocr (Macrobid (02/27/17 09:00) Urine Culture (02/27/17 08:57) Acetamin-Codeine 300-30 Mg (Tylenol-Code (02/27/17 10:00) Labs Laboratory Tests Test 02/27/17 08:20 Urine Collection Type CLEAN CATCH Urine Color YELLOW Urine Turbidity SLIGHT Urine pH 6.5 Urine Specific [place] 1.019 Urine Protein NEG mg/dL Urine Glucose (UA) 250 mg/dL Urine Ketones NEG mg/dL Urine Occult Blood NEG Urine Nitrite NEG Urine Bilirubin NEG Urine Leukocyte Esterase LARGE Urine WBC 20-24 /hpf Urine Squamous Epithelial > 8 /hpf Cells Urine Amorphous Sediment FEW Urine Bacteria MOD /hpf Microscopic Urinalysis Comment CULT NOT INDICATED Urine Collection Time 0820 [facility] Medical Decision Making Medical Screen Exam Complete: Yes Emergency Medical Condition: Yes Interpretation(s) Vital Signs Date Time Temp Pulse Resp B/P Pulse Ox O2 Delivery O2 Flow Rate FiO2 02/27/17 08:02 97.7 65 16 134/75 98 Differential Diagnosis Differential includes pyelonephritis, cervicitis, muscle strain, discitis though unlikely, cauda equina though unlikely, lumbar strain Narrative Course Patient is a 21-year-old female who presents to emergency room with complaints of low back pain. On evaluation, patient has paraspinal tenderness to her low back, patient with no midline tenderness. X-ray of the lumbar spine ordered. Plan to treat patient's low back pain with IV dexamethasone, IV Toradol as well as Valium. Patient with no signs of cauda equina, patient ambulating emergency with normal gait, patient with no saddle anesthesia, patient with no incontinence of urine or bowel. Previous records were reviewed, patient was seen yesterday in the emergency room for abdominal pain. Patient did have a pelvic exam performed, reports concerns for possible cervicitis as patient had yellowish discharge. Patient was discharged after receiving a dose of IV Rocephin, oral doxycycline, patient was discharged home with oral doxycycline. UA as well as culture still pending. Patient with no abdominal pain at this time, denies any vaginal discharge or bleeding. No urinary symptoms at this time. Discussed with patient need to continue her antibiotics as prescribed. Last Impressions Lumbar Spine X-Ray 02/27/17 0000 Signed Impressions: Service Date/Time: Saturday, February 27, 2017 08:37 - CONCLUSION: No acute disease. Davon Boyd MD FACR UA: pos for glucose, large leuk esterase, 20-23 wbc, mod bacteria, UC sent Plan to add macrobid for treatment of uti. Patient feeling much better at this time. Understands need to follow up with all cultures from today. She will return to ER as needed Diagnosis Primary Impression: UTI (urinary tract infection) Qualified Code: N30.00 - Acute cystitis without hematuria Additional Impressions: Glucosuria Back pain Qualified Code: M54.5 - Acute bilateral low back pain without sciatica Patient Instructions: General Instructions, Narcotic given in the ED Additional Instructions: Please follow-up with all cultures from today Please follow-up with your primary care doctor in 24-48 hours Return to emergency room as needed or if symptoms worsen or persist Please do not drive while taking narcotic pain medications. Med/Other Pt SpecificInfo: Prescription(s) given Scripts Ibuprofen 600 Mg Pxt127 Mg PO Q6H PRN (Pain/Inflammation) #40 TAB Ref 0 Prov:Sera Persley DO 02/27/17 Acetaminophen-Codeine (Tylenol-Codeine #3)300-30 mg Tab1 Tab PO Q4H PRN (PAIN) # 10 TAB Ref 0 Prov:Sera Presley DO 02/27/17 Nitrofurantoin Monohydrate Macrocrystals (Macrobid)100 Mg Qhw852 Mg PO BID 10 Days Ref 0 Prov:Sera Presley DO 02/27/17 Disposition: 01 DISCHARGE HOME Condition: Stable Sera Presley DO Feb 27, 2017 08:17
[2017-02-27] MEDS ORDERED: DEXAMETHASONE SOD PHOS 20 MG/5 ML VIAL IM ONE (08:30)
[2017-02-27] MEDS ORDERED: KETOROLAC TROMETHAMINE 60 MG/2 ML (IM) VIAL IM ONE (08:30)
[2017-02-27] MEDS ORDERED: DIAZEPAM 5 MG TAB PO ONE (08:30)
[2017-02-27 08:34] LABS: BLOOD, URINE NEG (NEG); GLUCOSE,URINE 250 mg/dL (NEG); KETONE, URINE NEG (NEG); NITRITE,URINE NEG (NEG); PH, URINE 6.5 (5.0-8.5)
[2017-02-27 08:48] LABS: METHOD OF COLLECTION CLEAN CATCH; URINE COLOR YELLOW (YELLW/STRAW)
[2017-02-27 08:49] LABS: BACTERIA, URINE MOD /hpf; SQUAMOUS EPITHELIAL CELL URINE > 8 /hpf (0-5)
[2017-02-27 08:50] LABS: COMMENT (UR) CULT NOT INDICATED; COMMENT2 (UR) CULT NOT INDICATED; CULTURE IF INDICATED CULT NOT INDICATED
[2017-02-27] MEDS ORDERED: NITROFURANTOIN MONOHYD MACROCR 100 MG CAP PO ONE (09:00)
--- NOTE | 2017-02-27 09:55 | RADRPT ---
EXAM DATE/TIME: 02/27/2017 08:37 [facility] COMPARISON: No previous studies available for comparison. INDICATIONS : Lower back pain; no known inury. MEDICAL HISTORY : None. SURGICAL HISTORY : None. ENCOUNTER: Initial ACUITY: 2 days PAIN SCORE: 7/10 LOCATION: Bilateral [place] spine. FINDINGS: Two view examination was performed. There are five non-rib bearing vertebral bodies. The vertebral bodies are in normal alignment without evidence of subluxation or scoliosis. The disc spaces are esther ntained. The pedicles are intact. Bony mineralization is normal. No fracture is identified. CONCLUSION: No acute disease. Davon Boyd MD FACR on February 27, 2017 at 9:53 Board Certified Radiologist. This report was verified electronically.
[2017-02-27 09:59] VITALS: BP 138/65; PULSE 58; RESP 14; O2SAT 98
[2017-02-27] MEDS ORDERED: ACETAMINOPHEN/CODEINE 300 MG/30 MG TAB PO ONE (10:00)
[2017-02-27] MEDS ORDERED: IBUP-232 PO (10:13)
[2017-02-27] MEDS ORDERED: MACR100C2 PO (10:13)
[2017-02-27] MEDS ORDERED: TYLETAB34 PO (10:13)
== END 2017-02-27 10:32 | disposition home or self-care (01) ==
LOC: PHED 07:58
DX: N30.00 Acute cystitis without hematuria (principal); R82.99 Other abnormal findings in urine; M54.5 Low back pain; Z85.72 Personal history of non-Hodgkin lymphomas; Z87.09 Personal history of other diseases of the respiratory system
CPT/HCPCS: 72100; 81001; 84703; 87086; 96372; 99284; J1100; J1885

== ENCOUNTER 2017-07-19 19:46 | Emergency (ER) | payer OTHER ==
[~2017-07-19] VITALS: Ht 160 cm; Wt 98.0 kg
[~2017-07-19 19:46] MED LIST changes: +IBUP-232 PO; +MACR100C2 PO; +TYLETAB34 PO
[2017-07-19 19:48] VITALS: BP 141/81; PULSE 72; RESP 18; TEMP 98; O2SAT 98
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
[2017-07-19] MEDS ORDERED: ACETAMINOPHEN 325 MG TAB PO ONE (20:30)
[2017-07-19 21:23] LABS: BACTERIA, URINE MOD /hpf; BLOOD, URINE NEG (NEG); COMMENT (UR) CULTURE INDICATED; CULTURE IF INDICATED CULTURE INDICATED; GLUCOSE,URINE NEG (NEG); KETONE, URINE NEG (NEG); NITRITE,URINE NEG (NEG); SQUAMOUS EPITHELIAL CELL URINE 20 /hpf (0-5); URINE COLOR LIGHT-YELLOW (YELLW/STRAW)
[2017-07-19] MEDS ORDERED: MACR100C2 PO (21:39)
[2017-07-19] MEDS ORDERED: NITROFURANTOIN MONOHYD MACROCR 100 MG CAP PO ONE (21:45)
== END 2017-07-19 21:59 | disposition home or self-care (01) ==
LOC: NEPD 19:46
DX: S39.012A Strain of muscle, fascia and tendon of lower back, initial encounter (principal); O26.892 Other specified pregnancy related conditions, second trimester; R82.71 Bacteriuria; V47.5XXA Car driver injured in collision with fixed or stationary object in traffic accident, initial encounter; Z3A.21 21 weeks gestation of pregnancy; Z79.899 Other long term (current) drug therapy
CPT/HCPCS: 81001; 85384; 87086

== ENCOUNTER → 2017-09-26 | Emergency (ER) | payer MEDICAID ==
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
[2017-09-26 11:47] VITALS: BP 110/63; PULSE 69
== END | disposition home or self-care (01) ==
LOC: HOBED 10:42
DX: O26.893 Other specified pregnancy related conditions, third trimester (principal); N89.8 Other specified noninflammatory disorders of vagina; R42 Dizziness and giddiness; Z3A.31 31 weeks gestation of pregnancy
CPT/HCPCS: 84112; 99283

== ENCOUNTER 2017-11-12 06:47 | Emergency (ER) | payer MEDICAID ==
[~2017-11-12] VITALS: Ht 160 cm; Wt 106.6 kg
[2017-11-12] MEDS ORDERED: PRENTAB7 (07:16)
--- NOTE | 2017-11-12 07:34 | PD ---
HPI Chief Complaint Contractions Date Seen: Nov 12, 2017 Travel History International Travel<30 Days: No Contact w/Intl Traveler<30Days: No Known Affected Area: No History of Present Illness HPI Patient is a 22 y/o at 37/6 weeks gestation that presents to the [facility] ED with a chief complaint of contractions that began this morning. Patient states that they are maybe 10 minutes apart and 8/10 in intensity. She denies vaginal bleeding, abnormal vaginal discharge, loss of fluid, and endorses positive movements. She is also experiencing nausea but all other review of systems are negative. Patient gets her care at [facility]. On 11/05/17, she had a GBS test done but has not seen the results yet. The results are not yet available in the EMR. 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 Obstetric History Obstetric History No issues during this Past Surgical History Narrative Surgical Left wrist fracture repair at 8 years of age Port placement for chemotherapy Family History Narrative Family History No family history of cancer or asthma Dad has diabetes Maternal grandmother has hypertension Social History Alcohol Use: No Tobacco Use: No Substance Abuse: No Allergies-Medications (Allergen,Severity, Reaction): Coded Allergies: No Known Allergies (Verified Adverse Reaction, Unknown, 09/23/17) Home Meds Reported Medications Pnv No.95/Ferrous Fum/Folic AC ( Vitamins Tablet) 28 Mg Iron-800 Mcg Tablet 11/12/17 Review of Systems General / Constitutional: No: Fever, Chills Eyes: No: Blurred Vision HENT: No: Headaches Cardiovascular: No: Chest Pain or Discomfort Respiratory: No: Short of Breath Gastrointestinal: Nausea, Abdominal Pain, No: Vomiting Genitourinary: No: Dysuria Musculoskeletal: Cramping Skin: No Rash, No Itching Physical Exam Narrative GENERAL: Well-nourished, well-developed patient. SKIN: Warm and dry. HEAD: Normocephalic and atraumatic. EYES: No scleral icterus. No injection or drainage. ENT: No nasal drainage noted. Mucous membranes pink. Airway patent. NECK: Supple, trachea midline. No JVD. CARDIOVASCULAR: Regular rate and rhythm without murmurs, gallops, or rubs. RESPIRATORY: Breath sounds equal bilaterally. No accessory muscle use. ABDOMEN/GI: Abdomen soft, non-tender, bowel sounds present, no rebound, no guarding Gravid to 38 weeks size GENITOURINARY: External Genitalia: intact and normal in appearance Cervix: Posterior Dilatation: 1 cm Effacement: 30% Station: -2 Presentation: Cephalic Membranes: Intact Uterine Contractions: Irritability FHT's: Category: 1 Baseline: 125 Reactive: Multiple accelerations seen Variability: Moderate Decels: None EXTREMITIES: No cyanosis or edema. BACK: Nontender without obvious deformity. No CVA tenderness. NEUROLOGICAL: Awake and alert. Motor and sensory grossly within normal limits. Five out of 5 muscle strength in all muscle groups. Normal speech. Data Data Vital Signs Reviewed: Yes [facility] Medical Record Reviewed: Yes Interpretation(s) 22 year old presents with [place] contractions Plan Intrauterine - heart tones category 1, reassuring -Not in active labor, vaginal exam: 09/24/- -No contractions identified on the monitor, irritability seen -Plan is to discharge home, discussed hydration, Tylenol for pain, warm baths -Discussed signs of active labor, return to ED if water breaks -Patient expressed understanding and agreement with the plan Discussed with Dr. Fleming Diagnosis Diagnosis: Primary Impression: [place] contractions Disposition: 01 DISCHARGE HOME Condition: Stable Eko,Nenita ANDRADE Nov 12, 2017 07:34
== END 2017-11-12 13:21 | disposition home or self-care (01) ==
LOC: HOBED 06:47
DX: O47.1 False labor at or after 37 completed weeks of gestation (principal); Z3A.37 37 weeks gestation of pregnancy

== ENCOUNTER 2017-12-03 20:04 | Inpatient (IN) | payer MEDICAID ==
[~2017-12-03] VITALS: Ht 160 cm; Wt 112.0 kg
[~2017-12-03 20:04] MED LIST changes: -DOXY100C PO; -IBUP-232 PO; -MACR100C2 PO; +PRENTAB7; -TYLETAB34 PO
[2017-12-03] MEDS ORDERED: LACTATED RINGER'S 1000 ML INJ 1,000 ML IV PRN (20:51)
--- NOTE | 2017-12-03 20:51 | PD ---
HPI Chief Complaint Desires induction Date Seen: Dec 03, 2017 Time Seen: 20:44 Travel History International Travel<30 Days: No Contact w/Intl Traveler<30Days: No Known Affected Area: No History of Present Illness HPI 22-year-old who is at 40 weeks and 6 days was originally scheduled for induction today at 5 PM but wanted to deliver [facility] and presented herself they are this evening. They declined to induce her as she was not 41 weeks gestation and discharged her home. Patient called here about an hour ago and we asked that she present tomorrow for her a scheduled induction but she was unwilling to wait and is now here in triage. Patient states that she is very uncomfortable with on and off abdominal pain. Patient has no contractions or vaginal bleeding is as normal movement no antepartum complications, her group B strep is negative Weeks Gestation: 40 Para: 0 : 1 History Past Medical History Narrative Medical History of non-Hodgkin's lymphoma at 13 years old Past Surgical History Surgical History: No Previous Surgery Family History Family History: Negative Social History Alcohol Use: No Tobacco Use: No Substance Abuse: No Allergies-Medications (Allergen,Severity, Reaction): Coded Allergies: No Known Allergies (Verified Adverse Reaction, Unknown, 09/23/17) Home Meds Reported Medications Pnv No.95/Ferrous Fum/Folic AC ( Vitamins Tablet) 28 Mg Iron-800 Mcg Tablet 11/12/17 Review of Systems Except as stated in HPI: all other systems reviewed are Neg Physical Exam Narrative GENERAL: Well-nourished, well-developed patient. SKIN: Warm and dry. HEAD: Normocephalic and atraumatic. EYES: No scleral icterus. No injection or drainage. ENT: No nasal drainage noted. Mucous membranes pink. Airway patent. NECK: Supple, trachea midline. No JVD. CARDIOVASCULAR: Regular rate and rhythm without murmurs, gallops, or rubs. RESPIRATORY: Breath sounds equal bilaterally. No accessory muscle use. ABDOMEN/GI: Abdomen soft, non-tender, bowel sounds present, no rebound, no guarding Gravid to [-] weeks size Fundal Height: [-] 40 GENITOURINARY: External Genitalia: intact and normal in appearance BUS glands: [-] Normal Cervix: [-] Posterior Dilatation: [-] 2-3 Effacement: [-] 50 Station: [-] High Presentation: [-] Vertex Membranes: [intact or ruptured] intact Uterine Contractions: [-] Absent FHT's: Category: [-] 1 Baseline: [-] 140 Reactive: [-] Moderate Variability: [-] Moderate Decels: [-] Absent EXTREMITIES: No cyanosis or edema. BACK: Nontender without obvious deformity. No CVA tenderness. NEUROLOGICAL: Awake and alert. Motor and sensory grossly within normal limits. Five out of 5 muscle strength in all muscle groups. Normal speech. Data Data Vital Signs Reviewed: Yes Group B Strep: Negative [facility] Medical Record Reviewed: Yes Plan 22-year-old who is at 40 weeks 6 days. There has been a somewhat prolonged and frustrating series of events initiated by the patient earlier this evening however I am uncomfortable with discharging the patient at 40 weeks and 6 days to have her come in tomorrow for a scheduled induction. She is presently group B strep negative and we will start Pitocin induction Diagnosis Diagnosis: Primary Impression: 40 weeks gestation of Additional Impression: Abdominal pain during in third trimester Sera Fleming MD Dec 03, 2017 20:51
[2017-12-03] MEDS ORDERED: ONDANSETRON HCL 4 MG/2 ML VIAL IV PUSH PRN (21:00)
[2017-12-03] MEDS ORDERED: SODIUM CHLORID 0.9% 500 ML INJ 500 ML IV PRN (21:00)
[2017-12-03] MEDS ORDERED: LIDOCAINE HCL 1% 50 ML VIAL INFIL PRN (21:00)
[2017-12-03] MEDS ORDERED: OXYTOCIN 30 UNITS-500ML PREMIX 500 ML IV PRN (21:00)
[2017-12-03] MEDS ORDERED: OXYTOCIN 30 UNITS-500ML PREMIX 500 ML IV ONE (21:00)
[2017-12-03] MEDS ORDERED: LIDOCAINE HCL 1% 50 ML VIAL I-DERMAL PRN (21:00)
[2017-12-03] MEDS ORDERED: MINERAL OIL 10 ML VIAL TOPICAL PRN (21:00)
[2017-12-03] MEDS ORDERED: CITRIC ACID-SODIUM CITRATE LIQ 30 ML UDC PO SCH (21:00)
[2017-12-03] MEDS ORDERED: SODIUM CHLOR 0.9% 1000 ML INJ 1,000 ML IV PRN (21:11)
[2017-12-03 22:00] VITALS: RESP 18
[2017-12-03 22:22] LABS: AUTOMATED NEUTROPHIL # 10.8 TH/MM3 (1.8-7.7); BASOPHIL % 0.3 % (0.0-2.0); EOSINOPHIL # 0.1 TH/MM3 (0-0.4); EOSINOPHIL % 0.8 % (0.0-4.0); HEMATOCRIT 34.8 % (35.0-46.0); HEMOGLOBIN 11.8 GM/DL (11.6-15.3); LYMPH % 11.7 % (9.0-44.0); LYMPHOCYTE # 1.6 TH/MM3 (1.0-4.8); MEAN CORPUSCULAR HEMOGLOBIN 27.2 PG (27.0-34.0); MONO % 7.8 % (0.0-8.0); MONOCYTE # 1.1 TH/MM3 (0-0.9); NEUT % 79.4 % (16.0-70.0); PLATELET COUNT 231 TH/MM3 (150-450); RED BLOOD COUNT 4.35 MIL/MM3 (4.00-5.30); RED CELL DISTRIBUTION WIDTH 15.6 % (11.6-17.2); WHITE BLOOD COUNT 13.5 TH/MM3 (4.0-11.0)
[2017-12-03 23:26] VITALS: RESP 18
[2017-12-04] VITALS (90 sets, daily range): BP systolic 64–139; BP diastolic 28–98; PULSE 48–131; RESP 16–22; TEMP 97.7–98.7
[2017-12-04] MEDS: LACTATED RINGER'S 1000 ML INJ 1,000 ML IV SCH ×3 (00:14→13:54)
[2017-12-04] MEDS ORDERED: fentaNYL 2MCG-BUPIV 0.125% INJ 100 ML ONE (05:50)
[2017-12-04] MEDS ORDERED: ePHEDrine/NS 25 MG/5 ML SYRINGE ONE (06:32)
[2017-12-04] MEDS ORDERED: DO NOT ADMINISTER ANTICOAGULANTS PRN (07:15)
[2017-12-04] MEDS ORDERED: ePHEDrine/NS 25 MG/5 ML SYRINGE IV PUSH PRN (07:15)
[2017-12-04] MEDS ORDERED: fentaNYL 2MCG-BUPIV 0.125% 100 ML EPIDURAL SCH (07:15)
[2017-12-04] MEDS ORDERED: NO SYSTEM NARCOTICS PRN (07:15)
--- NOTE | 2017-12-04 09:22 | PD.LABORPN ---
Subjective Subjective 22YO at 41/0 weeks laboring. AROM performed via amniotomy at 0900hrs with clear fluid noted. Cervix 6/100/-1, vtx. FHT BL 120, reactive, moderate, and absent decels. Objective Vital Signs Vital Signs Date Time Temp Pulse Resp B/P (MAP) Pulse Ox O2 Delivery O2 Flow Rate FiO2 12/04/17 09:09 73 110/69 (83) 12/04/17 08:41 16 12/04/17 08:41 97.8 12/04/17 08:31 57 122/76 (91) 12/04/17 08:01 59 128/76 (93) 12/04/17 07:45 60 12/04/17 07:41 18 12/04/17 07:40 67 12/04/17 07:35 59 12/04/17 07:31 60 110/62 (78) 12/04/17 07:30 55 12/04/17 07:25 57 12/04/17 07:20 64 12/04/17 07:16 54 91/76 (81) 12/04/17 07:15 63 12/04/17 07:10 65 12/04/17 07:05 97.8 64 18 12/04/17 07:01 67 100/60 (73) 12/04/17 07:00 62 12/04/17 06:55 64 12/04/17 06:50 57 12/04/17 06:49 106/59 (75) 12/04/17 06:49 56 12/04/17 06:46 62 12/04/17 06:46 92/50 (64) 12/04/17 06:45 52 12/04/17 06:43 51 104/45 (64) 12/04/17 06:40 56 12/04/17 06:40 48 96/52 (67) 12/04/17 06:37 64/28 (40) 12/04/17 06:37 55 12/04/17 06:35 56 12/04/17 06:34 69 12/04/17 06:34 84/48 (60) 12/04/17 06:31 63 90/37 (54) 12/04/17 06:30 77 12/04/17 06:28 66 92/44 (60) 12/04/17 06:25 63 97/45 (62) 12/04/17 06:22 69 96/49 (65) 12/04/17 06:19 57 12/04/17 06:19 20 12/04/17 06:19 114/57 (76) 12/04/17 06:15 62 125/83 (97) 12/04/17 05:51 20 12/04/17 05:47 51 139/77 (97) 12/04/17 03:33 18 12/04/17 03:33 98.4 12/04/17 03:33 49 138/93 (108) 12/04/17 02:17 18 12/04/17 02:16 52 111/56 (74) 12/04/17 01:58 18 12/04/17 01:30 54 136/79 (98) Objective Pelvic Exam: Cervix: open Dilatation: 6 Effacement: 100 Station: -1 Presentation: vtx Membranes: AROM at 0900hrs, clear fluid Uterine Contractions: 2-4 minutes FHT's: Category: 1 Baseline: 120 Reactive: yes Variability: moderate Decels: absent Weeks Gestation: 40 Artificial rupture of membrane: Yes Artificial ROM date: Dec 04, 2017 Artifical ROM time: 09:00 Assessment/Plan Assessment and Plan 22YO at 41/0 weeks laboring. AROM performed via amniotomy at 0900hrs with clear fluid noted. Cervix 6/100/-1, vtx. FHT BL 120, reactive, moderate, and absent decels. 1. IUP -Pitocin titrate per protocol -AROM 0900, clear fluid -Monitor and toco -Check q2h Pt seen with Dr Lorraine Gamble and dw Pb Dunn MD R1 Dec 04, 2017 09:22
[2017-12-04] MEDS ORDERED: LIDOCAINE HCL 1% PF 5 ML AMPULE ONE (13:08)
[2017-12-04] MEDS ORDERED: LIDOCAINE HCL 1% PF 30 ML VIAL ONE (17:40)
[2017-12-04 18:58] LABS: HEMATOCRIT 28.7 % (35.0-46.0); HEMOGLOBIN 9.7 GM/DL (11.6-15.3)
--- NOTE | 2017-12-04 18:59 | PD.OB.DELI ---
Weeks gestation: 40 Artificial rupture of membrane: Yes Artificial ROM date: Dec 04, 2017 Artifical ROM time: 09:00 Anesthesia: Epidural, Lidocaine pudendal block Episiotomy: Midline Vaginal Delivery: Forceps Presentation: Occiput anterior Nuchal Cord: None Delayed cord clamping (45 sec): Yes : Male, Single Delivery date: Dec 04, 2017 Delivery time: 17:55 One Minute : 9 Five Minute : 9 Weight: 3380 gm Placenta: Spontaneous delivery Laceration: Episiotomy, Vaginal laceration, 2 deg Repair: Chromic running, Vicryl running Estimated blood loss: 500 cc Additional Information Low forcep delivery at a +2 station, head and a right occiput anterior position, delivery was easily done with light pressure and traction. Bilateral sidewall lacerations noted and repaired, second-degree episiotomy repaired, and labial and periurethral lacerations also noted and included in the repair Iglesia Swift II, MD Dec 04, 2017 18:59
[2017-12-04] MEDS ORDERED: ALUMINUM/MAGNESIUM/SIMETH 30 ML CUP PO PRN (19:00)
[2017-12-04] MEDS ORDERED: DIPHTH/TETANUS/ACEL PERTUSSIS (BOOSTER) 0.5 ML VIAL/PFS IM ONE (19:00)
[2017-12-04] MEDS ORDERED: ZOLPIDEM TARTRATE 5 MG TAB PO PRN (19:00)
[2017-12-04] MEDS ORDERED: ONDANSETRON ODT 4 MG TAB PO PRN (19:00)
[2017-12-04] MEDS ORDERED: oxyCODONE/ACETAMINOPHEN 5 MG/325 MG TAB PO PRN ×2 (19:00)
[2017-12-04] MEDS ORDERED: DOCUSATE SODIUM 50 MG/SENNA 8.6 MG TAB PO PRN (19:00)
[2017-12-04] MEDS ORDERED: OXYTOCIN 30 UNITS-500ML PREMIX 500 ML IV SCH (19:00)
[2017-12-04] MEDS ORDERED: WITCH HAZEL 50%/GLYCERIN 12.5% 40 PAD JAR TOPICAL PRN (19:00)
[2017-12-04] MEDS ORDERED: MEASLES, MUMPS, RUBELLA VACCINE 0.5 ML VIAL SQ ONE (19:00)
[2017-12-04] MEDS ORDERED: BENZOCAINE 20% TOPICAL SPRAY 60 ML CAN TOPICAL PRN (19:00)
[2017-12-04] MEDS ORDERED: SODIUM CHLORIDE 0.9% FLUSH 10 ML FLUSH IV FLUSH PRN (19:00)
[2017-12-04] MEDS: ACETAMINOPHEN 325 MG TAB PO PRN (19:32)
[2017-12-04] MEDS: IBUPROFEN 800 MG TAB PO PRN (19:32)
[2017-12-04] MEDS ORDERED: SODIUM CHLORIDE 0.9% FLUSH 10 ML FLUSH IV FLUSH SCH (21:00)
[2017-12-04] MEDS ORDERED: AMMONIA AROMATIC INHALANT 0.33 ML ONE (22:38)
[2017-12-05] MEDS: ACETAMINOPHEN 325 MG TAB PO PRN ×5 (02:13→23:03)
[2017-12-05] MEDS: IBUPROFEN 800 MG TAB PO PRN ×3 (04:56→23:03)
[2017-12-05 08:00] VITALS: BP 116/64; PULSE 70; RESP 20; TEMP 97.8; O2SAT 99
--- NOTE | 2017-12-05 08:26 | HHI.OB ---
Subjective Post Day: 1 Remarks day # 1. AFVSS overnight. Decreased lochia. Denies dysuria. No breast tenderness. She is feeding the baby via breast. Appetite good. No nausea or vomiting. Ambulating well. Denies calf pain or shortness of breath. Otherwise, she is doing well this morning and has no other concerns. Objective Vitals/I&O Vital Signs Date Time Temp Pulse Resp B/P (MAP) Pulse Ox O2 Delivery O2 Flow Rate FiO2 12/04/17 21:46 98.3 77 22 112/73 (86) 12/04/17 21:10 104 113/98 (103) 12/04/17 21:01 81 107/67 (80) 12/04/17 20:51 82 104/56 (72) 12/04/17 20:42 73 101/52 (68) 12/04/17 20:31 85 126/97 (107) 12/04/17 19:45 17 12/04/17 19:40 131 89/66 (74) 12/04/17 19:31 101 12/04/17 19:30 18 12/04/17 19:17 123 106/45 (65) 12/04/17 19:09 17 12/04/17 19:01 126 103/82 (89) 12/04/17 18:49 117 110/61 (77) 12/04/17 18:47 128 73/47 (56) 12/04/17 18:46 97.9 12/04/17 18:46 18 12/04/17 18:30 20 12/04/17 18:22 97 124/66 (85) 12/04/17 17:15 18 12/04/17 17:05 102 121/62 (81) 12/04/17 16:54 98.2 12/04/17 16:01 72 137/84 (101) 12/04/17 15:38 18 12/04/17 15:32 98 138/95 (109) 12/04/17 15:02 92 111/78 (89) 12/04/17 14:58 16 12/04/17 14:58 98.0 12/04/17 14:31 107 138/81 (100) 12/04/17 14:14 53 122/87 (99) 12/04/17 14:00 18 12/04/17 13:56 18 12/04/17 13:54 71 126/76 (93) 12/04/17 13:31 56 132/73 (92) 12/04/17 13:28 57 136/84 (101) 12/04/17 13:15 16 12/04/17 13:10 98.1 12/04/17 13:01 62 133/83 (100) 12/04/17 12:39 18 12/04/17 12:31 63 132/84 (100) 12/04/17 12:01 57 119/75 (90) 12/04/17 11:44 18 12/04/17 11:31 85 115/48 (70) 12/04/17 11:01 66 122/73 (89) 12/04/17 10:35 97.7 18 12/04/17 10:31 65 110/57 (74) 12/04/17 10:01 67 102/53 (69) 12/04/17 09:31 52 113/66 (82) 12/04/17 09:30 18 12/04/17 09:09 73 110/69 (83) 12/04/17 08:41 16 12/04/17 08:41 97.8 12/04/17 08:31 57 122/76 (91) Objective Remarks GENERAL: Well-nourished, well-developed patient. CARDIOVASCULAR: Regular rate and rhythm without murmurs, gallops, or rubs. RESPIRATORY: Breath sounds equal bilaterally. No accessory muscle use. ABDOMEN/GI: Abdomen soft, non-tender. Fundus: Firm, non-tender at umbilicus. GENITOURINARY: Light to moderate bleeding. EXTREMITIES: No cyanosis or edema, non-tender, without signs of DVT. Medications and IVs Current Medications Medications (Trade) Dose Ordered Sig/Benja Route Start Time Stop Time Status Last Admin Lactated Ringer's 1,000 ml @ 125 mls/hr Q8H IV 12/03/17 20:51 12/04/17 13:54 Lactated Ringer's 1,000 ml @ 3,000 mls/hr Q20M PRN IV 12/03/17 20:51 Sodium Chloride 500 ml @ 1,000 mls/hr ONCE PRN IV 12/03/17 21:00 Sodium Chloride 1,000 ml @ 100 mls/hr Q10H PRN IV 12/03/17 21:11 (Xylocaine 1% Inj (50 ml)) 0.1 ml UNSCH X1 PRN I-DERMAL 12/03/17 21:00 12/06/17 20:59 (Bicitra Liq) 30 ml MANAGER REGISTRATION PO 12/03/17 21:00 12/07/17 20:59 (Zofran Inj) 4 mg Q6H PRN IV PUSH 12/03/17 21:00 (fentaNYL INJ) 50 mcg Q1H PRN IV PUSH 12/03/17 21:00 12/04/17 03:30 (fentaNYL INJ) 100 mcg Q1H PRN IV PUSH 12/03/17 21:00 (Xylocaine 1% Inj (50 ml)) 10 ml UNSCH X1 PRN INFIL 12/03/17 21:00 12/05/17 20:59 (Muri-Lube Oil) 10 ml UNSCH PRN TOPICAL 12/03/17 21:00 Oxytocin 500 ml @ 0 mls/hr TITRATE PRN IV 12/03/17 21:00 12/04/17 00:18 Fentanyl/ Bupivacaine HCl 100 ml @ 0 mls/hr TITRATE EPIDURAL 12/04/17 07:15 12/04/17 13:56 (NS Flush) 2 ml BID IV FLUSH 12/04/17 21:00 (NS Flush) 2 ml UNSCH PRN IV FLUSH 12/04/17 19:00 (Tylenol) 650 mg Q4H PRN PO 12/04/17 19:00 12/05/17 04:56 (Motrin) 800 mg Q8H PRN PO 12/04/17 19:00 12/05/17 04:56 (Percocet 5-325 Mg) 1 tab Q4H PRN PO 12/04/17 19:00 (Percocet 5-325 Mg) 2 tab Q4H PRN PO 12/04/17 19:00 (Americaine 20% Top Spr) 1 spray Q4H PRN TOPICAL 12/04/17 19:00 (Tucks Pads) 1 applic QID PRN TOPICAL 12/04/17 19:00 (Chandni-Colace) 2 tab Q12H PRN PO 12/04/17 19:00 (Ambien) 5 mg HS PRN PO 12/04/17 19:00 (Mag-Al Plus Susp Liq) 15 ml Q8H PRN PO 12/04/17 19:00 (Zofran Odt) 4 mg Q6H PRN PO 12/04/17 19:00 Assessment/Plan Problem List: (1) Forceps delivery with baby delivered ICD Codes: O66.5 - Attempted application of vacuum extractor and forceps (2) 40 weeks gestation of ICD Codes: Z3A.40 - 40 weeks gestation of Status: Acute Assessment and Plan 22 y/o female who is PPD# 1 s/p forceps-assisted VD. Care -Continue routine care. -Acetaminophen and Motrin PRN pain. -Encouraged OOB. Advised pelvic rest for 6 wks. -Re: ctrl, she would like to discuss at follow up visit with her OB. -Anticipate discharge tomorrow. COURTNEY Swift Discharge Planning Discharge tomorrow Micki Gamble MD R2 Dec 05, 2017 08:26
[2017-12-05 10:09] LABS: HEMOGLOBIN 7.9 GM/DL (11.6-15.3); MEAN CELL VOLUME 81.1 FL (80.0-100.0); MEAN CORPUSCULAR HEMOGLOBIN 26.8 PG (27.0-34.0); MEAN CORPUSCULAR HGB CONC 33.1 % (32.0-36.0); MEAN PLATELET VOLUME 9.7 FL (7.0-11.0); PLATELET COUNT 200 TH/MM3 (150-450); RED BLOOD COUNT 2.96 MIL/MM3 (4.00-5.30); RED CELL DISTRIBUTION WIDTH 16.2 % (11.6-17.2); WHITE BLOOD COUNT 17.3 TH/MM3 (4.0-11.0)
[2017-12-05 20:03] VITALS: BP 113/74; PULSE 77; RESP 19; TEMP 98.4
[2017-12-06] MEDS ORDERED: ACET325T15 PO (07:18)
[2017-12-06] MEDS ORDERED: IBUP-232 PO (07:18)
[2017-12-06] MEDS ORDERED: PERI PO (07:18)
--- NOTE | 2017-12-06 07:19 | HHI.DCPOC ---
Discharge Care Plan Diagnosis: (1) Vaginal delivery Report Symptoms to Your Doctor -Temperature above 100.5 degrees -Redness, of incision or excessive or foul smelling drainage -Unusual pain or calf pain -Increased vaginal bleeding -Painful or difficulty urinating -Feelings of extreme sadness or anxiety after 2 weeks Goals to Promote Your Health * To prevent worsening of your condition and complications * To maintain your health at the optimal level Directions to Meet Your Goals Take your medications as prescribed Follow your dietary instruction Follow activity as directed Ensure plenty of rest for recovery Drink fluids for hydration Keep your appointments as scheduled Take your immunizations and boosters as scheduled If your symptoms worsen call your PCP, if no PCP go to Urgent Care Center or Emergency Room Smoking is Dangerous to Your Health. Avoid second hand smoke Call the 24-hour crisis hotline for domestic abuse at Micki Gamble MD R2 Dec 06, 2017 07:19
--- NOTE | 2017-12-06 07:21 | HHI.OB ---
Subjective Post Day: 2 Remarks day # 2. AFVSS overnight. Decreased lochia. Denies dysuria. No breast tenderness. She is feeding the baby via breast. Appetite good. No nausea or vomiting. Ambulating well. Denies calf pain or shortness of breath. Otherwise, she is doing well this morning and has no other concerns. Objective Vitals/I&O Vital Signs Date Time Temp Pulse Resp B/P (MAP) Pulse Ox O2 Delivery O2 Flow Rate FiO2 12/05/17 20:03 98.4 77 19 113/74 (87) 12/05/17 08:00 97.8 70 20 116/64 (81) 99 Objective Remarks GENERAL: Well-nourished, well-developed patient. CARDIOVASCULAR: Regular rate and rhythm without murmurs, gallops, or rubs. RESPIRATORY: Breath sounds equal bilaterally. No accessory muscle use. ABDOMEN/GI: Abdomen soft, non-tender. Fundus: Firm, non-tender at umbilicus. GENITOURINARY: Light to moderate bleeding. EXTREMITIES: No cyanosis or edema, non-tender, without signs of DVT. Medications and IVs Current Medications Medications (Trade) Dose Ordered Sig/Benja Route Start Time Stop Time Status Last Admin Lactated Ringer's 1,000 ml @ 125 mls/hr Q8H IV 12/03/17 20:51 12/04/17 13:54 Lactated Ringer's 1,000 ml @ 3,000 mls/hr Q20M PRN IV 12/03/17 20:51 Sodium Chloride 500 ml @ 1,000 mls/hr ONCE PRN IV 12/03/17 21:00 Sodium Chloride 1,000 ml @ 100 mls/hr Q10H PRN IV 12/03/17 21:11 (Xylocaine 1% Inj (50 ml)) 0.1 ml UNSCH X1 PRN I-DERMAL 12/03/17 21:00 12/06/17 20:59 (Bicitra Liq) 30 ml [employer] PO 12/03/17 21:00 12/07/17 20:59 (Zofran Inj) 4 mg Q6H PRN IV PUSH 12/03/17 21:00 (fentaNYL INJ) 50 mcg Q1H PRN IV PUSH 12/03/17 21:00 12/04/17 03:30 (fentaNYL INJ) 100 mcg Q1H PRN IV PUSH 12/03/17 21:00 (Muri-Lube Oil) 10 ml UNSCH PRN TOPICAL 12/03/17 21:00 Oxytocin 500 ml @ 0 mls/hr TITRATE PRN IV 12/03/17 21:00 12/04/17 00:18 Fentanyl/ Bupivacaine HCl 100 ml @ 0 mls/hr TITRATE EPIDURAL 12/04/17 07:15 12/04/17 13:56 (NS Flush) 2 ml BID IV FLUSH 12/04/17 21:00 (NS Flush) 2 ml UNSCH PRN IV FLUSH 12/04/17 19:00 (Tylenol) 650 mg Q4H PRN PO 12/04/17 19:00 12/05/17 23:03 (Motrin) 800 mg Q8H PRN PO 12/04/17 19:00 12/05/17 23:03 (Percocet 5-325 Mg) 1 tab Q4H PRN PO 12/04/17 19:00 (Percocet 5-325 Mg) 2 tab Q4H PRN PO 12/04/17 19:00 (Americaine 20% Top Spr) 1 spray Q4H PRN TOPICAL 12/04/17 19:00 (Tucks Pads) 1 applic QID PRN TOPICAL 12/04/17 19:00 (Chandni-Colace) 2 tab Q12H PRN PO 12/04/17 19:00 12/05/17 23:02 (Ambien) 5 mg HS PRN PO 12/04/17 19:00 (Mag-Al Plus Susp Liq) 15 ml Q8H PRN PO 12/04/17 19:00 (Zofran Odt) 4 mg Q6H PRN PO 12/04/17 19:00 Assessment/Plan Problem List: (1) Forceps delivery with baby delivered ICD Codes: O66.5 - Attempted application of vacuum extractor and forceps (2) 40 weeks gestation of ICD Codes: Z3A.40 - 40 weeks gestation of Status: Acute Assessment and Plan 22 y/o female who is PPD# 2 s/p forceps-assisted VD. Care -Continue routine care. -Acetaminophen and Motrin PRN pain. -Encouraged OOB. Advised pelvic rest for 6 wks. -Re: ctrl, she would like to discuss at follow up visit with her OB. -Anticipate discharge today. COURTNEY Redman Discharge Planning Discharge tomorrow Micki Gamble MD R2 Dec 06, 2017 07:21
[2017-12-06] MEDS: IBUPROFEN 800 MG TAB PO PRN (07:38)
[2017-12-06] MEDS: ACETAMINOPHEN 325 MG TAB PO PRN (07:39)
[2017-12-06 08:00] VITALS: BP 122/69; PULSE 81; RESP 20; TEMP 98.4; O2SAT 97
== END 2017-12-06 17:05 | disposition home or self-care (01) | DRG 775 ==
LOC: HOBED 20:04 → H2EB 20:59 → H1EA 12-04 21:25
PROVIDERS: ADMIT Obstetrics & Gynecology Obstetrics; ATTEND Obstetrics & Gynecology Obstetrics
PROC: 3E033VJ Introduction of Other Hormone into Peripheral Vein, Percutaneous Approach (ICD-10-PCS; 2017-12-03)
PROC: 10D07Z3 Extraction of Products of Conception, Low Forceps, Via Natural or Artificial Opening (ICD-10-PCS; principal; 2017-12-04)
PROC: 0KQM0ZZ Repair Perineum Muscle, Open Approach (ICD-10-PCS; 2017-12-04)
PROC: 0W8NXZZ Division of Female Perineum, External Approach (ICD-10-PCS; 2017-12-04)
PROC: 0UQMXZZ Repair Vulva, External Approach (ICD-10-PCS; 2017-12-04)
PROC: 10907ZC Drainage of Amniotic Fluid, Therapeutic from Products of Conception, Via Natural or Artificial Opening (ICD-10-PCS; 2017-12-04)
DX: O48.0 Post-term pregnancy (principal); O71.82 Other specified trauma to perineum and vulva; O71.4 Obstetric high vaginal laceration alone; Z37.0 Single live birth; Z3A.41 41 weeks gestation of pregnancy; Z85.72 Personal history of non-Hodgkin lymphomas
CPT/HCPCS: 80307; 85014; 85018; 85025; 85027; 86592; 86900; 86901; 90715; 99283; G0481; J2590; J3010; J7120

== ENCOUNTER 2018-02-01 21:01 | Emergency (ER) | payer MEDICAID ==
[~2018-02-01] VITALS: Ht 160 cm; Wt 105.0 kg
[~2018-02-01 21:01] MED LIST changes: +ACET325T15 PO; +IBUP-232 PO; +PERI PO
[2018-02-01 21:16] VITALS: BP 143/72; PULSE 96; RESP 18; TEMP 98.6; O2SAT 98
--- NOTE | 2018-02-01 21:58 | PD ---
HPI Chief Complaint: ENT Complaint Time Seen by Provider: 21:55 Travel History International Travel<30 days: No Contact w/Intl Traveler<30days: No Traveled to known affect area: No History of Present Illness HPI 22-year-old female presents to the emergency department complaint of 2-3 days of sore throat. Patient states throat was more painful today so decided to come to the emergency room. Patient denies any fever chills. Patient does not complain of any earache. Patient had some frontal headache today headache is not described or reported as sudden onset thunderclap or worst ever. Patient is taken no ibuprofen prior to arrival to the emergency department. Patient states last menstrual period was prior to delivering her child in November patient has been using condoms and has been sexually active but denies any . Patient is not breast-feeding. Patient does not report any ear pain neck pain chest pain cough congestion vomiting diarrhea or other complaints. Patient does not report any known exacerbating or alleviating factors. Patient has not reported use of acetaminophen, saltwater gargles, lozenges, or Chloraseptic spray. Patient rates her pain 2/10 intensity. PFSH Past Medical History Narrative Medical Lymphoma with chemotherapy age 13; no tobacco use; nursing notes reviewed Cancer: Yes (HX LARGE B CELL LYMPHOMA AT AGE 13.) Chemotherapy: Yes (2010-LYMPHOMA) Developmental Delay: No Diminished Hearing: No Endocrine: No Gastrointestinal Disorders: No Genitourinary: No Heparin Induced Thrombocytopen: No Immune Disorder: No Musculoskeletal: No Neurologic: No Psychiatric: No Reproductive: No Respiratory: Yes Immunizations Current: Yes Radiation Therapy: No Sickle Cell Disease: No Influenza Vaccination: No ?: Not : 0 Social History Alcohol Use: No Tobacco Use: No Substance Use: No Allergies-Medications (Allergen,Severity, Reaction): Coded Allergies: No Known Allergies (Verified Adverse Reaction, Unknown, 09/23/17) Reported Meds & Prescriptions Reported Meds & Active Scripts Active Eq Acetaminophen (Acetaminophen) 325 Mg Tab 650 Mg PO Q6H PRN Gnp Senna Plus 8.6-50 mg (Sennosides-Docusate Sodium) 8.6 Mg-50 Mg Tab 2 Tab PO Q12H PRN Take one tab twice daily to reduce risk of constipation. Discontinue for loose stools. Ibuprofen 600 Mg Tab 600 Mg PO Q6H PRN Reported Vitamins Tablet (Pnv No.95/Ferrous Fum/Folic AC) 28 Mg Iron-800 Mcg Tablet Review of Systems Except as stated in HPI: all other systems reviewed are Neg General / Constitutional: No: Fever, Chills HENT: Positive: Headaches, Sore Throat, No: Congestion, Neck Stiffness, Neck Pain, Earache Cardiovascular: No: Chest Pain or Discomfort Respiratory: No: Cough, Shortness of Breath, Wheezing Gastrointestinal: No: Nausea, Vomiting, Abdominal Pain Genitourinary: No: Dysuria, Flank Pain Musculoskeletal: No: Myalgias, Arthralgias Skin: No Rash Neurologic: No: Weakness, Dizziness, Syncope Psychiatric: No: Anxiety Hematologic/Lymphatic: No: Easy Bruising Physical Exam Narrative GENERAL: Well-developed well-nourished female no acute distress no respiratory distress; no stridor no hoarseness; afebrile SKIN: Warm and dry. HEAD: Normocephalic. EYES: No scleral icterus. No injection or drainage. ENT: Mucous membranes moist airways patent no redness no exudative change no edema however there is clear-cloudy posterior pharyngeal drainage noted tympanic membranes no redness no dullness no loss of landmarks. NECK: Supple, trachea midline. No JVD or lymphadenopathy. No meningismus no nuchal rigidity. CARDIOVASCULAR: Regular rate and rhythm without murmurs, gallops, or rubs. RESPIRATORY: Breath sounds equal bilaterally. No accessory muscle use. GASTROINTESTINAL: Abdomen soft, non-tender, nondistended. MUSCULOSKELETAL: No cyanosis, or edema. BACK: Nontender without obvious deformity. No CVA tenderness. Data Data Last Documented VS Vital Signs Date Time Temp Pulse Resp B/P (MAP) Pulse Ox O2 Delivery O2 Flow Rate FiO2 02/01/18 21:16 98.6 96 18 143/72 (95) 98 Orders Orders Ed Discharge Order (02/01/18 21:58) MDM Medical Decision Making Medical Screen Exam Complete: Yes Emergency Medical Condition: Yes Medical Record Reviewed: Yes Differential Diagnosis Viral syndrome, pharyngitis, mononucleosis, rhinosinusitis, sinusitis, postnasal drainage, otitis media, bronchitis, pneumonia Narrative Course At this point time there is no indication for rapid strep test and his tonsils are not red not swollen and no exudative change patient appears to have postnasal drainage and suspect may be secondary throat irritation pharyngitis; discussed with patient obtaining test as she has not had a period since November patient does not want to have a test and states she is not therefore test is not performed Patient appears stable for outpatient management no prescriptions are indicated at this time patient can use at her discretion [id number] acetaminophen or ibuprofen for symptom relief. Diagnosis Primary Impression: Post-nasal drainage Additional Impression: Acute pharyngitis, unspecified Referrals: Primary Care Physician call for appointment Patient Instructions: General Instructions Additional Instructions: Increase fluid hydration Use warm salt water gargles/lozenges or Chloraseptic spray for symptom relief May use warm tea for symptom relief Monitor temperature every 4 hours with thermometer and take acetaminophen/ Tylenol every 4 hours as needed for fever 100.4F or greater or for minor pain and/or take ibuprofen/Advil/Motrin 800 mg as often as every 8 hours OR ibuprofen 600 mg as often as every 6 hours as needed for fever 100.4F or greater or for pain associated with inflammation May use as tolerated Afrin nasal decongestant spray per package directions for 2 -3 days avoid overuse to avoid rebound congestion May use Flonase for nasal congestion or rhinosinusitis symptoms Return to the emergency department for any concerns or change in condition Follow-up with your primary care provider Med/Other Pt SpecificInfo: No Change to Meds Disposition: 01 DISCHARGE HOME Condition: Stable Ligia Horn MD Feb 01, 2018 21:58
== END 2018-02-01 22:06 | disposition home or self-care (01) ==
LOC: PHEFT 21:01
DX: R09.82 Postnasal drip (principal); J02.9 Acute pharyngitis, unspecified; R51 Headache; Z85.72 Personal history of non-Hodgkin lymphomas
CPT/HCPCS: 99282